=== PATIENT | female | born 1995 | race Caucasian/White ===

== ENCOUNTER 2021-02-09 11:44 | Emergency (ER) | payer BC, SELFPAY ==
--- NOTE | ~2021-02-09 | CT_ITS ---
EXAMINATION: CT abdomen pelvis w con EXAM DATE: 02/09/2021 13:18 INDICATION: RLQ abd pain. TECHNIQUE: Spiral CT of the abdomen and pelvis was performed following intravenous injection of 100 m L Omnipaque 350. Axial, coronal and sagittal images were reviewed. The dose-length product (DLP) fo r this examination was 217.12 mGy-cm. The exposure was tailored according to patient size (auto mA e xposure control), and iterative reconstruction (ASIR) was used as additional dose reduction technique . Comparison is made to prior examination from 12/22/2017. FINDINGS: The liver, spleen, adrenal glands and pancreas are unremarkable. There are cholecystectomy clips. Portal and splenic veins are patent. Kidneys enhance symmetrically. There is no hydronephr osis. The uterus and ovaries are unremarkable, no adnexal mass. The bladder is unremarkable. Ther e is no retroperitoneal or pelvic lymphadenopathy. The retrocecal appendix is normal. The stomach and small bowel are unremarkable. There is moderate amount of colonic stool. No free intraperitoneal gas. The heart is normal in size. There are no pericardial or pleural effusions. The lung bases are unremarkable. There are no osteoblastic or ost eolytic lesions identified. IMPRESSION: 1. No acute intra-abdominal findings. Reviewed, dictated and finalized at location A.
--- NOTE | ~2021-02-09 | US_ITS ---
EXAMINATION: US pelvic complete w TV DATE: 02/09/2021 15:28 INDICATION: Right lower quadrant abdominal pain. TECHNIQUE: Multiple transabdominal and transvaginal sonographic images of the pelvis were obtained. COMPARISON: CT abdomen and pelvis 02/09/2021 FINDINGS: TRANSABDOMINAL ULTRASOUND: The uterus measures 9.6 x 6.3 x 4.5 cm. There is no free fluid in the pelvis. TRANSVAGINAL ULTRASOUND: The endometrial complex measures 6 mm in thickness. The right ovary measures 3.2 x 2.8 x 3.3 cm. The left ovary measures 1.9 x 1.9 x 3.1 cm. There is normal vascular flow in the ovaries. IMPRESSION: 1. Normal pelvis. Reviewed, dictated and finalized at location A. IMPRESSION: 1. Normal pelvis.
[2021-02-09 11:53] VITALS: BP 125/78; PULSE 84; RESP 18; TEMP 35.8; O2SAT 100
--- NOTE | 2021-02-09 12:01 | ED.ABDPAIN ---
HPI - Abdominal Pain General Chief Complaint: Abdominal Pain Stated Complaint: Lower Back Pain Time Seen by Provider: 02/09/21 11:51 Source: RN notes reviewed History of Present Illness HPI narrative: Patient presents emergency room from home for abdominal pain. Patient states symptoms began yesterday. Pain is located in the right lower quadrant around to the right flank described as sharp and stabbing. Denies any fevers or chills chest pain shortness of breath nausea vomiting diarrhea or any other symptoms. States she took no medication for the pain today. States nothing makes the pain better or worse Related Data Allergies Allergy/AdvReac Type Severity Reaction Status Date / Time morphine Allergy Unknown Unknown Verified 02/09/21 11:55 Pistachio Allergy Unknown HIVES Uncoded 07/28/20 11:09 Review of Systems Review of Systems: Narrative: Gen.: Denies fevers or chills ENT: Denies congestion Respiratory: Denies shortness of breath or cough CV: Denies chest pain or palpitations GI: See HPI denies burning, urgency, frequency or hematuria Musculoskeletal: Denies back pain or muscle pain Neuro: Denies numbness, tingling, weakness or focal weakness Skin: Denies rash Except as documented, all other systems reviewed and negative PMFSH Past Medical History Medical History Narcolepsy Surgical History Surgical History (Updated 05/03/20 @ 08:48 by Xenia Aguiar CMA) Delivery by section History of adenoidectomy History of surgical removal of ganglion cyst History of tubal ligation Hx of tonsillectomy Family History Family History (Updated 04/29/18 @ 08:51 by DOCTOR UNKNOWN) Mother Patient's mother is in good health Father Patient's father is in good health Social History Social History Smoking status: Current every day smoker Smoking end date: 11/11/17 Alcohol intake: current Exam Narrative: Exam Narrative: APPEARANCE: No acute distress, nontoxic, resting in bed HEENT: Normocephalic, atraumatic, OMM RESPIRATORY: No respiratory distress, clear to auscultation bilaterally with no rhonchi wheezing or rales CARDIOVASCULAR: RRR s murmur ABDOMINAL: Soft nondistended tender palpation in right lower quadrant no tenderness right upper quadrant, left upper quadrant left lower quadrant no rebound or guarding MUSCULOSKELETAl: Moves all extremities. No clubbing, cyanosis or edema. NEURO: Awake and alert. Following commands, speech normal, no focal deficits SKIN:: Warm, dry. Normal Color PSYCHIATRIC: Normal affect/mood Course Course Emergency Course: On further discussion with patient she states that she has approximately 2 or 3 episodes of the similar pain per year for the past several years she states has had no formal work-up. Discussed follow-up with GI for further work-up as pain does appear to be more chronic Patient states that they are feeling much better at this time. States abdominal pain has improved. Repeat abdominal exam shows the patient's abdomen to be soft with no surgical abdomen present discussed with patient results of workup and diagnosis. Discussed need for follow-up with primary care physician, reasons to return to the emergency department in proper use of medication. Patient understands and agrees to current treatment plan Vital Signs Vital signs: Vital Signs Temperature 96.4 F L 02/09/21 11:53 Pulse Rate 84 02/09/21 11:53 Respiratory Rate 18 02/09/21 11:53 Blood Pressure 125/78 02/09/21 11:53 Pulse Oximetry 100 02/09/21 11:53 Temperature 96.4 F L 02/09/21 11:53 Pulse Rate 84 02/09/21 11:53 Respiratory Rate 18 02/09/21 11:53 Blood Pressure 125/78 02/09/21 11:53 Pulse Oximetry 100 02/09/21 11:53 MDM - Abdominal Pain MDM Narrative Medical decision making narrative: Patient's abdomen is soft without significant pain or signs of surgi
[2021-02-09 12:05] LABS: Basophils Percent Auto 0.3 % (0.2-1.2); Eosinophils Percent Auto 0.3 % (0-4.4); Hematocrit 49.3 % (37.0-47.0); Hemoglobin 16.4 g/dL (12.0-15.0); Immature Granulocyte Absolute 0.03 K/mm3 (0.00-0.031); Immature Granulocyte Percent A 0.3 % (0-0.5); Lymphocytes Absolute Auto 2.15 K/mm3 (0.9-3.2); Lymphocytes Percent Auto 19.7 % (18.3-44.2); Mean Corpuscular HGB Conc 33.3 g/dl (32-36); Mean Corpuscular Hemoglobin 31.6 pg (26-34); Mean Platelet Volume 9.6 fl (7.4-10.4); Monocytes Absolute Auto 0.7 K/mm3 (0.1-0.6); Monocytes Percent Auto 6.1 % (2.6-8.5); Neutrophils Percent Auto 73.3 % (45.5-73.1); Platelet Count Result 265 k/mm3 (150-375); Red Blood Count 5.19 M/mm3 (4.2-5.4); Red Cell Distribution Width 12.7 % (11.5-14.5); White Blood Count 10.9 K/mm3 (4.5-10.0)
[2021-02-09 12:19] LABS: Alanine Aminotransferase 14 U/L (4-35); Alkaline Phosphatase 57 U/L (38-126); Anion Gap 9 mmol/L (8-16); Aspartate Amino Transferase 22 U/L (14-36); Bilirubin,Total 0.6 mg/dL (0.2-1.3); Blood Urea Nitrogen 20 mg/dL (7-17); Calcium 9.4 mg/dL (8.4-10.2); Carbon Dioxide 28 mmol/L (22-30); Chloride 105 mmol/L (98-107); Estimated CRCL calculation 75 ml/min; Estimated Glomerular Filt Rate > 60; Glucose 92 mg/dL (65-105); Lipase 87 U/L (23-300); Sodium 142 mmol/L (137-145)
[2021-02-09 13:54] LABS: Add Urine Microscopic? YES; Appearance Urine Clear (Clear); Bilirubin Urine Negative (Negative); Blood Urine Negative (Negative); Color Urine Straw (Yellow); Glucose Urine UA Negative (Negative); Ketones Urine 1+ mg/dL (Negative); Leukocyte Esterase Ur Negative LEU/UL (Negative); Nitrate Urine Negative (Negative); Protein Urine Negative (Negative); RBC Urine 0-2 /hpf (0-2); Squamous Epithelial Cell Urine Few /hpf (Few); Urobilinogen Urine Negative mg/dL (<2.0); WBC Urine 0-3 /hpf
[2021-02-09] MEDS: KETOROLAC 30 MG/ML VIAL (*BKC) IV PUSH (14:00)
[2021-02-09] MEDS: SODIUM CHLORIDE 0.9% IV 1,000 ML 999 ML IV CONT (14:00)
[2021-02-09 14:01] LABS: Specific Grav Ur > 1.060 (1.001-1.035)
== END 2021-02-09 16:16 | disposition home or self-care (01) ==
PROVIDERS: Emergency Provider Emergency Medicine; PCP Internal Medicine
DX: R10.31 Right lower quadrant pain (principal); G47.419 Narcolepsy without cataplexy; Z87.891 Personal history of nicotine dependence
CPT/HCPCS: 36415; 74177; 76830; 76856; 80053; 81001; 81025; 83690; 85025; 96361; 96374; 96375; 99284; J0131; J1885; J7030; Q9967

== ENCOUNTER 2021-11-25 15:50 | Emergency (ER) | payer OTHER, SELFPAY ==
[2021-11-25 16:09] VITALS: BP 114/73; PULSE 105; RESP 16; TEMP 36.6; O2SAT 98
--- NOTE | 2021-11-25 18:47 | PC.NURSE ---
pt refusing to get into gown at this time.
[2021-11-25 18:59] LABS: Basophils Percent Auto 0.6 % (0.2-1.2); Eosinophils Absolute Auto 0.1 K/mm3 (0-0.3); Eosinophils Percent Auto 0.8 % (0-4.4); Hematocrit 42.6 % (37.0-47.0); Immature Granulocyte Absolute 0.02 K/mm3 (0.00-0.031); Immature Granulocyte Percent A 0.3 % (0-0.5); Mean Corpuscular HGB Conc 32.9 g/dl (32-36); Mean Corpuscular Hemoglobin 31.2 pg (26-34); Mean Corpuscular Volume 94.9 fl (80-100); Mean Platelet Volume 10.1 fl (7.4-10.4); Monocytes Absolute Auto 0.6 K/mm3 (0.1-0.6); Monocytes Percent Auto 8.6 % (2.6-8.5); Neutrophils Absolute Auto 4.7 K/mm3 (1.3-6.7); Neutrophils Percent Auto 65.7 % (45.5-73.1); Platelet Count Result 290 k/mm3 (150-375); Red Blood Count 4.49 M/mm3 (4.2-5.4); Red Cell Distribution Width 13.2 % (11.5-14.5); White Blood Count 7.1 K/mm3 (4.5-10.0)
[2021-11-25 19:17] VITALS: BP 125/67; PULSE 69; RESP 20; O2SAT 100
--- NOTE | 2021-11-25 19:18 | PC.NURSE ---
pt refuses to change into gown
[2021-11-25 19:27] LABS: Alanine Aminotransferase 13 U/L (4-35); Albumin Level 4.6 g/dL (3.5-5.1); Alkaline Phosphatase 51 U/L (38-126); Anion Gap 9 mmol/L (8-16); Aspartate Amino Transferase 22 U/L (14-36); Bilirubin,Total 1.1 mg/dL (0.2-1.3); Blood Urea Nitrogen 8 mg/dL (7-17); Calcium 9.3 mg/dL (8.4-10.2); Carbon Dioxide 25 mmol/L (22-30); Chloride 104 mmol/L (98-107); Estimated CRCL calculation 97 ml/min; Estimated Glomerular Filt Rate > 60; Glucose 90 mg/dL (65-110); Lipase 50 U/L (23-300); Potassium 3.6 mmol/L (3.4-5.0); Sodium 138 mmol/L (137-145)
--- NOTE | 2021-11-25 19:40 | PC.NURSE ---
Pt reports she has longstanding hx of GI issues, c/o n/v/d x 2 weeks. reports last ate/drank this am. blanket provided. placed on monitor.
[2021-11-25 20:03] VITALS: BP 114/71; PULSE 78; RESP 20; O2SAT 100
[2021-11-25] MEDS: ONDANSETRON INJ 4 MG/2 ML VIAL IV PUSH (20:07)
[2021-11-25] MEDS: SODIUM CHLORIDE 0.9% IV 1,000 ML 999 ML IV CONT (20:07)
[2021-11-25 20:51] VITALS: BP 90/57; PULSE 77; RESP 20; O2SAT 100
--- NOTE | 2021-11-25 21:06 | PC.NURSE ---
Urine collected and sent to lab as ordered. Bedside preg test NEGATIVE.
[2021-11-25 21:16] LABS: Add Urine Microscopic? YES; Appearance Urine Cloudy (Clear); Bilirubin Urine Negative (Negative); Blood Urine Negative (Negative); Color Urine Yellow (Yellow); Glucose Urine UA Negative (Negative); Ketones Urine 1+ mg/dL (Negative); Leukocyte Esterase Ur Negative LEU/UL (Negative); Mucus Urine Heavy /lpf; Nitrate Urine Negative (Negative); Protein Urine 1+ mg/dL (Negative); Specific Grav Ur 1.019 (1.001-1.035); Squamous Epithelial Cell Urine Many /hpf (Few)
--- NOTE | 2021-11-25 21:17 | ED.GENADULT ---
HPI - General Adult General Chief complaint: Nausea/Vomiting/Diarrhea Stated complaint: nausea Time Seen by Provider: 11/25/21 19:30 History of Present Illness HPI narrative: Patient with 26-year-old female Emergency Department complaining of nausea and vomiting. Patient reports that she was diagnosed with COVID on second reports that she has had continued nausea is feeling as though she is dehydrated. Patient reports not improved by anything and reports that the diarrhea but that subsequently tapered off the patient denies localizing abdominal pain Related Data Allergies Allergy/AdvReac Type Severity Reaction Status Date / Time morphine Allergy Severe Difficulty Verified 11/25/21 19:17 Breathing Pistachio Allergy Unknown HIVES Uncoded 11/25/21 18:45 Review of Systems Review of Systems: A 10 system review of systems was completed on the patient and is negative except for what is stated in the HPI. Nursing and ancillary documentation was reviewed. [facility] Past Medical History Medical History Narcolepsy Surgical History Surgical History Delivery by section History of adenoidectomy History of surgical removal of ganglion cyst History of tubal ligation Hx of tonsillectomy Family History Family History Mother Patient's mother is in good health Father Patient's father is in good health Social History Social History Smoking status: Current every day smoker Smoking end date: 11/11/17 Alcohol intake: current Alcohol use details: rarely Exam Narrative: GENERAL: Well-appearing, well-nourished, and in no acute distress. HEAD: Normocephalic, atraumatic. EYES: PERRLA and EOMI. ENT: Nares clear, no rhinorrhea or epistaxis. Mucous membranes moist. NECK: Supple. CHEST: Clear to auscultation. No respiratory distress. HEART: Regular rate and rhythm. No murmur heard. Normal peripheral pulses. ABDOMEN: Soft, nontender, nondistended, normal active bowel sounds. EXTREMITIES: Normal range of motion. No edema. SKIN: Warm, dry, no rash. NEURO: No focal deficits. Alert and oriented x3. PSYCH: Normal mood and affect. Course Vital Signs Vital signs: Vital Signs Temperature 36.6 C 11/25/21 16:09 Pulse Rate 105 H 11/25/21 16:09 Respiratory Rate 16 11/25/21 16:09 Blood Pressure 114/73 11/25/21 16:09 Pulse Oximetry 98 11/25/21 16:09 Temperature 36.6 C 11/25/21 16:09 Pulse Rate 77 11/25/21 20:51 Respiratory Rate 20 11/25/21 20:51 Blood Pressure 90/57 L 11/25/21 20:51 Pulse Oximetry 100 11/25/21 20:51 Medical Decision Making Vital Signs Vital Signs: Vital Signs Temperature 36.6 C 11/25/21 16:09 Pulse Rate 105 H 11/25/21 16:09 Respiratory Rate 16 11/25/21 16:09 Blood Pressure 114/73 11/25/21 16:09 Pulse Oximetry 98 11/25/21 16:09 Temperature 36.6 C 11/25/21 16:09 Pulse Rate 77 11/25/21 20:51 Respiratory Rate 20 11/25/21 20:51 Blood Pressure 90/57 L 11/25/21 20:51 Pulse Oximetry 100 11/25/21 20:51 Lab Data Result diagrams: 11/25/21 18:54 11/25/21 19:13 Labs: Lab Results 11/25/21 11/25/21 11/25/21 Range/Units 18:54 19:13 21:00 WBC 7.1 (4.5-10.0) K/mm3 RBC 4.49 (4.2-5.4) M/mm3 Hgb 14.0 (12.0-15.0) g/dL Hct 42.6 (37.0-47.0) % MCV 94.9 (80-100) fl MCH 31.2 (26-34) pg MCHC 32.9 (32-36) g/dl RDW 13.2 (11.5-14.5) % Plt Count 290 (150-375) k/mm3 MPV 10.1 (7.4-10.4) fl Immature Gran % (Auto) 0.3 (0-0.5) % Neut % (Auto) 65.7 (45.5-73.1) % Lymph % (Auto) 24.0 (18.3-44.2) % [place] % (Auto) 8.6 H (2.6-8.5) % Eos % (Auto) 0.8 (0-4.4) % Baso % (Auto) 0.6 (0.2-1.2) % Lymph # (Au
[2021-11-25 22:30] VITALS: BP 128/88; PULSE 100; RESP 18; TEMP 36.1; O2SAT 99
== END 2021-11-25 22:46 | disposition home or self-care (01) ==
PROVIDERS: Emergency Medicine; Emergency Provider Emergency Medicine; PCP Internal Medicine
DX: R11.2 Nausea with vomiting, unspecified (principal); Z86.16 Personal history of COVID-19; Z87.891 Personal history of nicotine dependence
CPT/HCPCS: 36415; 80053; 81001; 81025; 83690; 85025; 96361; 96374; 99284; J2405; J7030

== ENCOUNTER 2022-01-10 12:31 | Emergency (ER) | payer OTHER, SELFPAY ==
[2022-01-10 12:38] VITALS: BP 132/62; PULSE 85; RESP 18; TEMP 36.9; O2SAT 99
--- NOTE | 2022-01-10 12:45 | ED.DENTAL ---
HPI - Dental/Oral General Chief complaint: Dental/Oral Stated complaint: tooth pain Time Seen by Provider: 01/10/22 12:40 Source: patient Mode of arrival: ambulatory Limitations: no limitations History of Present Illness HPI Narrative: Kristy Nieves is a 26 yo female with a PMH of asthma who had a fractured left upper molar that occurred originally 4 years ago and has been infected on and off. Right now she has inflammation of the gum and pain in the right upper part of her jaw and has been unable to find a dentist will take her without insurance Related Data Allergies Allergy/AdvReac Type Severity Reaction Status Date / Time morphine Allergy Severe Difficulty Verified 11/25/21 19:17 Breathing Pistachio Allergy Unknown HIVES Uncoded 11/25/21 18:45 Review of Systems Review of Systems: CONSTITUTIONAL: Denies fever, chills, sweats. EYES: Denies visual changes, redness, discharge. ENT: Denies rhinorrhea, congestion, sore throat, otalgia. CARDIOVASCULAR: Denies chest pain, palpitations, edema. RESPIRATORY: Denies dyspnea, wheezing, cough GASTROINTESTINAL: Denies abdominal pain, nausea, vomiting, diarrhea. GENITOURINARY: Denies dysuria, hematuria, abnormal discharge SKIN: Denies rash or itching. NEUROLOGIC: Denies numbness, or focal weakness. PSYCHIATRIC: Denies anxiety or depression. Left upper molar pain PMFSH Past Medical History Medical History Narcolepsy Surgical History Surgical History Delivery by section History of adenoidectomy History of surgical removal of ganglion cyst History of tubal ligation Hx of tonsillectomy Family History Family History Mother Patient's mother is in good health Father Patient's father is in good health Social History Social History Smoking status: Current every day smoker Smoking end date: 11/11/17 Alcohol intake: current Alcohol use details: rarely Comments At time of signature, I agree with nursing past medical, surgical, social and family history. There is no relevant family history pertinent to the presenting complaint. Exam Narrative: GENERAL: This is a well-nourished, well-developed patient, in mild distress. HEAD: normocephalic, atraumatic. EYES: Sclera clear/white. Vision is grossly intact. EARS: External ears normal,. Hearing grossly intact. NOSE: External nose normal without nasal discharge, nares without redness, no rhinorrhea. THROAT: Mucous membranes moist, posterior pharynx mild erythema with left upper molar pain with swelling around gum and tooth is fractured in half NECK: Neck supple, non-tender CARDIOVASCULAR: Regular rate and rhythm without murmurs, gallops, or rubs. RESPIRATORY: Clear to auscultation. Breath sounds equal bilaterally. No wheezes, rales, or rhonchi. GASTROINTESTINAL: Abdomen soft, SKIN: warm, intact with no suspicious lesions or rash, good texture and turgor. NEURO: awake, alert, and oriented to person, place and time. There were no obvious focal neurologic abnormalities. Steady gait EXTREMITIES: Normal range of motion. BACK: Nontender without deformity Course Course Emergency Course: Patient comes with pain in fracture upper left molar Started on Pen-Vee K, Tylenol 3 and viscous lidocaine Level of Care: Express Care Visit Vital Signs Vital signs: Vital Signs Temperature 98.4 F 01/10/22 12:38 Pulse Rate 85 01/10/22 12:38 Respiratory Rate 18 01/10/22 12:38 Blood Pressure 132/62 01/10/22 12:38 Pulse Oximetry 99 01/10/22 12:38 Temperature 98.4 F 01/10/22 12:38 Pulse Rate 85 01/10/22 12:38 Respiratory Rate 18 01/10/22 12:38 Blood Pressure 132/62 01/10/22 12:38 Pulse Oximetry 99 01/10/22 12:38 MDM - Dental/Oral Differential Diagnosis Differential diag
== END 2022-01-10 13:03 | disposition home or self-care (01) ==
PROVIDERS: Emergency Provider Nurse Practitioner; PCP Nurse Practitioner Family
DX: S02.5XXA Fracture of tooth (traumatic), initial encounter for closed fracture (principal); X58.XXXA Exposure to other specified factors, initial encounter
CPT/HCPCS: 99213; G0463

== ENCOUNTER 2022-04-11 10:21 | Emergency (ER) | payer OTHER, SELFPAY ==
--- NOTE | ~2022-04-11 | XR_ITS ---
XR wrist RT min 3V 04/11/2022 10:50 INDICATION: Right wrist pain PROCEDURE: 4 views right wrist COMPARISON: No prior studies for comparison. FINDINGS: Fracture, dislocation or subluxation is not identified. The soft tissues appear within norm al limits. No foreign bodies are identified. IMPRESSION: 1: NO ACUTE BONE OR JOINT ABNORMALITY IDENTIFIED. Reviewed, dictated and finalized at location A.
--- NOTE | 2022-04-11 10:30 | ED.UPPEXIN ---
HPI - Extremity Injury (Upper) General Chief Complaint: Extremity Injury, Upper Stated Complaint: right wrist pain Source: patient Mode of arrival: ambulatory Limitations: no limitations History of Present Illness HPI narrative: 26 y/o female presented for c/o right wrist pain, gradual onset yesterday. 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 Pain to ulnar/palmar aspect, constant, worse with twisting movement. Denies numbness, tingling or weakness of hand. Rates pain 6 out of 10. She has not taken anything for pain, or applied ice/heat Related Data Allergies Allergy/AdvReac Type Severity Reaction Status Date / Time morphine Allergy Severe Difficulty Verified 04/11/22 10:39 Breathing Pistachio Allergy Intermediate HIVES Uncoded 04/11/22 10:39 Review of Systems Review of Systems: CONSTITUTIONAL: Denies body aches, fever, chills CARDIOVASCULAR: Denies chest pain, palpitations, or edema. RESPIRATORY: Denies cough or dyspnea. SKIN: Denies rash, itching, or wounds. MUSCULOSKELETAL: Reports joint pain. NEUROLOGIC: Denies numbness, tingling, or weakness. All systems reviewed & are unremarkable except as noted in HPI and below PMFSH Past Medical History Medical History Narcolepsy Surgical History Surgical History Delivery by section History of adenoidectomy History of surgical removal of ganglion cyst History of tubal ligation Hx of tonsillectomy Family History Family History Mother Patient's mother is in good health Father Patient's father is in good health Social History Social History Smoking status: Former smoker Tobacco type: cigarettes Smoking end date: 11/11/17 Alcohol intake: current Alcohol use details: rarely Substance use: current Substance use type: marijuana Gender identity (if verbalized by the patient): Female Comments At time of signature, I have reviewed and agree with nursing past medical, surgical, social and family history unless otherwise noted. Please see nursing chart for further information. There is no relevant family history pertinent to the presenting complaint Exam Narrative: GENERAL: Well-appearing HEAD: Normocephalic, atraumatic. EYES: conjunctivae clear NECK: Supple. CHEST: Speaks in full sentences. No respiratory distress. HEART: Regular rate and rhythm. Normal and equal peripheral pulses. EXTREMITIES: Right wrist ulnar/palmar surface TTP, Right hand has normal strength and sensation, normal range of motion but endorses pain with twisting movement. No edema or ecchymosis. No open wounds, skin tenting,or obvious deformity; alignment normal, pulse palpable and equal bilaterally, skin warm, dry, pink. Capillary refill less than 3 seconds. SKIN: Warm, dry, no rash. NEURO: Alert and oriented x3. Course Course Emergency Course: Patient is aware of diagnosis, understands and agrees to treatment plan. Anticipatory guidance given. Patient agrees to follow-up as directed and is aware of reasons to seek care at the emergency department. Portions of this record may have been created with voice recognition software Level of Care: Express Care Visit Vital Signs Vital signs: Vital Signs Temperature 97.2 F L 04/11/22 10:32 Pulse Rate 73 04/11/22 10:32 Respiratory Rate 12 04/11/22 10:32 Blood Pressure 110/62 04/11/22 10:32 Pulse Oximetry 100 04/11/22 10:32 Oxygen Delivery Room Air 04/11/22 10:32 Temperature 97.2 F L 04/11/22 10:32 Pulse Rate 73 04/11/22 10:32 Respiratory Rate 12 04/11/22 10:32 Blood Pressure 110/62 04/11/22 10:32 Pulse Oximetry 100 04/11/22 10:32 Oxygen Delivery Room Air 04/11/22 10:32 Reviewed MDM - Extremity In
[2022-04-11 10:32] VITALS: BP 110/62; PULSE 73; RESP 12; TEMP 36.2; O2SAT 100
== END 2022-04-11 11:22 | disposition home or self-care (01) ==
PROVIDERS: Emergency Provider Nurse Practitioner Family; PCP Nurse Practitioner Family
DX: S63.501A Unspecified sprain of right wrist, initial encounter (principal); S66.911A Strain of unspecified muscle, fascia and tendon at wrist and hand level, right hand, initial encounter; X58.XXXA Exposure to other specified factors, initial encounter; G47.419 Narcolepsy without cataplexy; Z87.891 Personal history of nicotine dependence
CPT/HCPCS: 73110; 99213; G0463

== ENCOUNTER 2022-05-05 15:49 | Emergency (ER) | payer OTHER, SELFPAY ==
[2022-05-05 15:59] VITALS: BP 117/75; PULSE 93; RESP 16; TEMP 37.1; O2SAT 100
--- NOTE | 2022-05-05 16:08 | ED.DENTAL ---
HPI - Dental/Oral General Chief complaint: Dental/Oral Stated complaint: Dental Pain Time Seen by Provider: 05/05/22 16:08 Source: patient Mode of arrival: ambulatory Limitations: no limitations History of Present Illness HPI Narrative: 26 yo F presents with L upper dental pain. Reports tooth has been broken for awhile . Has been on abx several times for it to treat infection. Cannot see dentist due to insurance reasons. All systems reviewed and negative except as noted above. Related Data Allergies Allergy/AdvReac Type Severity Reaction Status Date / Time morphine Allergy Severe Difficulty Verified 04/11/22 10:39 Breathing Pistachio Allergy Intermediate HIVES Uncoded 04/11/22 10:39 Review of Systems Review of Systems: CONSTITUTIONAL: Denies fever, chills, or sweats. EYES: Denies visual changes, redness, or discharge. ENT: Denies rhinorrhea, congestion, sore throat, or otalgia. Reports left upper dental pain. CARDIOVASCULAR: Denies chest pain, palpitations, or edema. RESPIRATORY: Denies cough or dyspnea. GASTROINTESTINAL: Denies abdominal pain, nausea, vomiting, or diarrhea. GENITOURINARY: Denies dysuria or hematuria. SKIN: Denies rash or itching. MUSCULOSKELETAL: Denies back pain, joint pain, or myalgia. NEUROLOGIC: Denies headache, numbness, or weakness. PSYCHIATRIC: Denies anxiety or depression. All other systems reviewed are negative, except as documented in HPI. [facility] [place] Past Medical History Medical History Narcolepsy Surgical History Surgical History Delivery by section History of adenoidectomy History of surgical removal of ganglion cyst History of tubal ligation Hx of tonsillectomy Family History Family History Mother Patient's mother is in good health Father Patient's father is in good health Social History Social History Smoking status: Former smoker Tobacco type: cigarettes Smoking end date: 11/11/17 Alcohol intake: current Alcohol use details: rarely Substance use: current Substance use type: marijuana Gender identity (if verbalized by the patient): Female Comments At time of signature, agree with nursing past medical, surgical, social and family history. There is no relevant family history pertinent to the presenting complaint. Exam Narrative: GENERAL: This is a well-nourished, well-developed patient, in no apparent distress. HEAD: normocephalic, atraumatic. EYES: PERRL. Sclera clear/white. Vision is grossly intact. EARS: External ears normal NOSE: External nose normal MOUTH: Broken wisdom tooth at base of gumline. Decayed with surrounding erythema and swelling to gums. NECK: Neck supple, non-tender without lymphadenopathy, masses or thyromegaly. CARDIOVASCULAR: Regular rate and rhythm without murmurs, gallops, or rubs. RESPIRATORY: Clear to auscultation. Breath sounds equal bilaterally. No wheezes, rales, or rhonchi. SKIN: warm, Dry, intact with no suspicious lesions or rash, good texture and turgor. NEURO: awake, alert, and oriented to person, place and time. There were no obvious focal neurologic abnormalities. EXTREMITIES: No joint tenderness, effusion, or edema noted. Course Course Level of Care: Express Care Visit Vital Signs Vital signs: Vital Signs Temperature 37.1 C 05/05/22 15:59 Pulse Rate 93 05/05/22 15:59 Respiratory Rate 16 05/05/22 15:59 Blood Pressure 117/75 05/05/22 15:59 Pulse Oximetry 100 05/05/22 15:59 Oxygen Delivery Room Air 05/05/22 15:59 Temperature 37.1 C 05/05/22 15:59 Pulse Rate 93 05/05/22 15:59 Respiratory Rate 16 05/05/22 15:59 Blood Pressure 117/75 05/05/22 15:59 Pulse Oximetry 100 05/05/22 15:59 Oxygen Delivery Room Air 05/05/22 15:59 Reviewed
== END 2022-05-05 16:31 | disposition home or self-care (01) ==
PROVIDERS: Emergency Provider Nurse Practitioner Family; PCP Nurse Practitioner Family
DX: K04.7 Periapical abscess without sinus (principal); Z87.891 Personal history of nicotine dependence; G47.419 Narcolepsy without cataplexy
CPT/HCPCS: 99213; G0463

== ENCOUNTER 2022-07-09 00:56 | Day surgery (SDC) | payer OTHER, SELFPAY ==
[2022-06-26 13:05] VITALS: BMI 21.3
--- NOTE | 2022-07-06 17:39 | PM.HPGS ---
History of Present Illness History of Present Illness Consent: Risks, benefits, and alternatives have been discussed and questions answered. Patient agrees to proceed with procedure. Chief complaint: nausea, vomiting, weightloss Narrative: Kristy Nieves is a 27 year old female who for about as long as she can remember she has had digestive problems.? She gets abdominal pain very frequently after meal.? The pain then radiates throughout her entire abdomen although it seems to be the worst in the right lower quadrant.? Eventually it will subside, particularly if she has diarrhea or vomits.? Even as a child, she had problems with vomiting.? Her television production assistant would prescribe Zofran but no tests were done to investigate it.? Over the years she feels that she is becoming immune to Zofran.? Often she will wake up vomiting bringing up only bile.? She has good and bad days, in other words there may be a day or 2 without symptoms and everything returns.? She has use cannabis regularly for the past 2 years since it has become legal but was not using it previously. She is not in favor of giving it up and I suggested he could be a factor in her symptoms because she states that she needs it to help settle her stomach. Crohn's,? IBD panel, celiac panel and CRP were completed that were normal.? She was placed on amitriptyline 10 mg HS at the end of February for IBS.? She states since she has been on amitriptyline she is no longer having postprandial diarrhea or abdominal pain and is now having formed bowel movements. Denies any melena or hematochezia.? She continues to have daily nausea with intermittent vomiting yellow acid bile with no regurgitation of undigested food.? Review of Systems Review of Systems: All systems reviewed & are unremarkable except as noted in HPI and below PMFSH Past Medical History Medical History Abdominal pain Diarrhea History of palpitations Narcolepsy Nausea and vomiting Surgical History Surgical History Delivery by section History of adenoidectomy History of surgical removal of ganglion cyst History of tubal ligation Hx of tonsillectomy Family History Family History Mother Patient's mother is in good health Father Patient's father is in good health Social History Social History Smoking status: Former smoker Tobacco type: cigarettes Smoking end date: 11/11/17 Alcohol intake: current Alcohol use details: rarely Substance use: current Substance use type: marijuana Last use: 06/26/22 Living arrangements: with family Gender identity (if verbalized by the patient): Female Spiritual care concerns: No Meds Home Medications and Allergies Home Medications Medication Instructions Recorded Confirmed Type omeprazole 40 mg capsule,delayed 40 mg PO DAILY #30 caps 06/07/22 07/09/22 Rx release prochlorperazine maleate 5 mg 5 mg PO Q8H PRN nausea and 06/07/22 07/09/22 Rx tablet (Compazine) vomiting #30 tabs amitriptyline 10 mg tablet See Rx Instructions .Route 06/21/22 07/09/22 Rx .COMPLEX #30 tabs Allergies Allergy/AdvReac Type Severity Reaction Status Date / Time morphine Allergy Severe Difficulty Verified 07/09/22 10:02 Breathing Pistachio Allergy Intermediate HIVES Uncoded 07/09/22 10:02 Exam Const: General: alert Orientation/consciousness: patient oriented x3 Resp: Auscultation: clear to auscultation bilaterally Cardio: Rhythm: regular rhythm GI: GI Palp: Yes Soft to palpation and No Tenderness to palpation present (GI) Neuro: General: patient oriented x3 Assessment and Plan Assessment and plan (1) Abdominal pain: Code(s): R10.9 - Unspecified abdominal pain Status: Acute Assessment and Plan: EGD with possible biopsy
[2022-07-09 10:05] VITALS: BP 115/75; PULSE 73; RESP 16; TEMP 36.6; O2SAT 100
--- NOTE | 2022-07-09 10:08 | WPDANESEPPF ---
Anes - Initial Pre Proc Eval Procedure: Operation Date: 07/09/22 11:00 Proposed Procedures p Esophagogastroduodenoscopy - Avi Jennings MD Date/Time: 07/09/22 10:08 Surgeon: Avi Jennings MD Pre Op Diagnosis: nausea, vomiting, weightloss Patient Data Age: 27 Gender: F Height: 1.65 m Weight: 58.1 kg Allergies Allergy/AdvReac Type Severity Reaction Status Date / Time morphine Allergy Severe Difficulty Verified 07/09/22 10:02 Breathing Pistachio Allergy Intermediate HIVES Uncoded 07/09/22 10:02 Home Medications Medication Instructions Recorded Confirmed Type omeprazole 40 mg capsule,delayed 40 mg PO DAILY #30 caps 06/07/22 06/26/22 Rx release prochlorperazine maleate 5 mg 5 mg PO Q8H PRN nausea and 06/07/22 06/26/22 Rx tablet (Compazine) vomiting #30 tabs amitriptyline 10 mg tablet See Rx Instructions .Route 06/21/22 06/26/22 Rx .COMPLEX #30 tabs Patient hx anesthesia problems: none Family hx anesthesia problems: none Results Review: All pre-operative results and documents have been reviewed as part of the pre-operative evaluation. [facility] Past Medical History Medical History (Updated 07/09/22 @ 10:11 by Doni Foley MD) Abdominal pain Diarrhea History of palpitations Narcolepsy Nausea and vomiting Surgical History Surgical History Delivery by section History of adenoidectomy History of surgical removal of ganglion cyst History of tubal ligation Hx of tonsillectomy Family History Family History Mother Patient's mother is in good health Father Patient's father is in good health Social History Social History Smoking status: Former smoker Tobacco type: cigarettes Smoking end date: 11/11/17 Alcohol intake: current Alcohol use details: rarely Substance use: current Substance use type: marijuana Last use: 06/26/22 Living arrangements: with family Gender identity (if verbalized by the patient): Female Spiritual care concerns: No Anes - Eval Final PreProcedure Day of Procedure 07/09/22 10:08 Patient weight: normal Heart: regular rate and rhythm Lungs: clear to auscultation and normal air movement Airway: Mallampati scale class II Neurological: alert and oriented Last oral intake: >/= 8 hours ASA classification: II Emergent: no Anesthetic plan: proceed Anesthesia type and monitoring: general GIVS Results Review: All pre-operative results and documents have been reviewed as part of the pre-operative evaluation. Informed Consent: The patient's anesthetic plan and its attendant risks and benefits were discussed with the patient/family/POA. Questions were solicited and answers provided to the satisfaction of the patient/family/POA.
[2022-07-09] MEDS: LACTATED RINGERS 1,000 ML 150 ML IV CONT (10:13)
[2022-07-09 10:54] VITALS: BP 93/53; PULSE 62; RESP 16; O2SAT 100
[2022-07-09 11:04] VITALS: BP 98/78; PULSE 62; RESP 16; O2SAT 100
[2022-07-09 11:14] VITALS: BP 113/80; PULSE 60; RESP 16; O2SAT 100
[2022-07-09 11:24] VITALS: BP 111/74; PULSE 56; RESP 20; O2SAT 100
[2022-07-09 11:34] VITALS: BP 105/67; PULSE 56; RESP 14; O2SAT 100
--- NOTE | 2022-07-09 11:59 | SUR.PHASEII ---
Pt asking for additional nausea medication to take at home states she has Zofran and Compazine at home. Dr. Jennings notified no new orders received. advises pt to stop Cannabis.
== END 2022-07-09 11:56 | disposition home or self-care (01) ==
PROVIDERS: PCP Nurse Practitioner Family; Visit Provider Internal Medicine Gastroenterology
PROC: 0DJ08ZZ Inspection of Upper Intestinal Tract, Via Natural or Artificial Opening Endoscopic (ICD-10-PCS; CPT 43235; principal; 2022-07-09 11:00)
DX: R11.2 Nausea with vomiting, unspecified (principal); K29.70 Gastritis, unspecified, without bleeding; R19.7 Diarrhea, unspecified; R00.2 Palpitations; G47.419 Narcolepsy without cataplexy; Z87.891 Personal history of nicotine dependence; F12.90 Cannabis use, unspecified, uncomplicated; R10.31 Right lower quadrant pain; R10.9 Unspecified abdominal pain
CPT/HCPCS: 43239; 87081; 88305; J2704; J7120

== ENCOUNTER 2023-01-15 09:24 | Emergency (ER) | payer OTHER, SELFPAY ==
[2023-01-15 09:43] VITALS: BP 115/72; PULSE 82; RESP 16; TEMP 36.3; O2SAT 99
--- NOTE | 2023-01-15 09:48 | ED.FEMALEGU ---
HPI - Female Genitourinary General Chief complaint: Urogenital-Female Stated complaint: uti Time Seen by Provider: 01/15/23 09:42 Source: patient Mode of arrival: ambulatory Limitations: no limitations History of Present Illness HPI Narrative: Kristy is a 27-year-old female patient presenting to the clinic today with complaints urinary urgency and low urine output with bladder discomfort. Symptoms have been going on for 2-3 days. Patient has been taking a [employer] [id number] urinary relief that has azo in it. She denies any fever, chills, or back pain. Related Data Allergies Allergy/AdvReac Type Severity Reaction Status Date / Time morphine Allergy Severe Difficulty Verified 01/15/23 09:42 Breathing Pistachio Allergy Intermediate HIVES Uncoded 01/15/23 09:42 PMFSH Past Medical History Medical History Abdominal pain Diarrhea History of palpitations Narcolepsy Nausea and vomiting Surgical History Surgical History Delivery by section History of adenoidectomy History of surgical removal of ganglion cyst History of tubal ligation Hx of tonsillectomy Family History Family History Mother Patient's mother is in good health Father Patient's father is in good health Social History Social History Smoking status: Former smoker Tobacco type: cigarettes Smoking end date: 11/11/17 Alcohol intake: current Alcohol use details: rarely Substance use: current Substance use type: marijuana Last use: 06/26/22 Living arrangements: with family Occupation/Education: occupation Gender identity (if verbalized by the patient): Female Spiritual care concerns: No Comments At the time of my signature, I reviewed and agree with the nursing past medical, surgical, social, and family history. There is no relevant family history pertinent to the patient complaint. Exam Narrative: General: Well-developed, well nourished, in no apparent distress. Head: Normocephalic, atraumatic. Cardio: Regular rate and rhythm, s1 and s2 normal, no murmur appreciated. Resp: Clear to auscultation bilaterally, no rhonchi, rales, wheezing or rubs. Abdomen: Soft, pliable, bowel sounds present in all quadrants, mild tender to palpation over the suprapubic bladder, no organomegly, no CVAT tenderness. Course Course Emergency Course: Portions of this record may have been created with voice recognition software. Level of Care: Express Care Visit Vital Signs Vital signs: Vital Signs Temperature 36.3 C L 01/15/23 09:43 Pulse Rate 82 01/15/23 09:43 Respiratory Rate 16 01/15/23 09:43 Blood Pressure 115/72 01/15/23 09:43 Pulse Oximetry 99 01/15/23 09:43 Oxygen Delivery Room Air 01/15/23 09:43 Temperature 36.3 C L 01/15/23 09:43 Pulse Rate 82 01/15/23 09:43 Respiratory Rate 16 01/15/23 09:43 Blood Pressure 115/72 01/15/23 09:43 Pulse Oximetry 99 01/15/23 09:43 Oxygen Delivery Room Air 01/15/23 09:43 Vital signs reviewed MDM - Female Genitourinary MDM Narrative Medical decision making narrative: At the time of visit patient is resting comfortably on the exam table. Urinalysis was obtained and was skewed due to azo results. Will send for culture. Will give patient 3 day course of Bactrim DS. Supportive measures were discussed with the patient she voiced understanding discharge instructions agrees to treatment plan. Differential Diagnosis Differential diagnosis: Likely urinary tract infection and cystitis Discharge Plan Discharge Clinical Impression: Urinary tract infection Patient Disposition: Home, Self-Care Condition: Stable Instructions: Antibiotic Form, Urinary Tract Infection in Women (ED) Additional I
== END 2023-01-15 10:00 | disposition home or self-care (01) ==
PROVIDERS: Emergency Provider Nurse Practitioner Family; PCP Nurse Practitioner Family
DX: N39.0 Urinary tract infection, site not specified (principal); Z87.891 Personal history of nicotine dependence
CPT/HCPCS: 87086; 99213; G0463

== ENCOUNTER 2023-04-21 02:04 | Emergency (ER) | payer OTHER, SELFPAY ==
[2023-04-21 02:09] VITALS: BP 134/76; PULSE 98; RESP 16; TEMP 36.7; O2SAT 100
--- NOTE | 2023-04-21 02:44 | ED.GENADULT ---
HPI - General Adult General Chief complaint: Skin/Abscess/Foreign Body Stated complaint: tick, red/swelling where it was removed Time Seen by Provider: 04/21/23 02:28 History of Present Illness HPI narrative: Patient 27-year-old female who presents the emergency department with chief complaint of tick bite to the right hip patient reports that today she did not realize that she picked up a tick and noticed that there was a tick on her right pelvis area this evening the patient reports that it got removed after she took her shower and reports that there is a little red dot there the patient states she is concerned that she may have been exposed with tickborne illness Related Data Allergies Allergy/AdvReac Type Severity Reaction Status Date / Time morphine Allergy Severe Difficulty Verified 04/21/23 02:05 Breathing Pistachio Allergy Intermediate HIVES Uncoded 04/21/23 02:05 Review of Systems Review of Systems: A 10 system review of systems was completed on the patient and is negative except for what is stated in the HPI. Nursing and ancillary documentation was reviewed. PMFSH Past Medical History Medical History Abdominal pain Diarrhea History of palpitations Narcolepsy Nausea and vomiting Surgical History Surgical History Delivery by section History of adenoidectomy History of surgical removal of ganglion cyst History of tubal ligation Hx of tonsillectomy Family History Family History Mother Patient's mother is in good health Father Patient's father is in good health Social History Social History Smoking status: Former smoker Tobacco type: cigarettes Smoking end date: 11/11/17 Alcohol intake: current Alcohol use details: rarely Substance use: current Substance use type: marijuana Last use: 06/26/22 Living arrangements: with family Occupation/Education: occupation Gender identity (if verbalized by the patient): Female Spiritual care concerns: No Exam Narrative: GENERAL: Well-appearing, well-nourished, and in no acute distress. HEAD: Normocephalic, atraumatic. EYES: PERRLA and EOMI. ENT: Nares clear, no rhinorrhea or epistaxis. Mucous membranes moist. NECK: Supple. CHEST: Clear to auscultation. No respiratory distress. HEART: Regular rate and rhythm. No murmur heard. Normal peripheral pulses. ABDOMEN: Soft, nontender, nondistended, normal active bowel sounds. EXTREMITIES: Normal range of motion. No edema. SKIN: Warm, dry, small about 1 cm diameter spot of erythema in the right iliac crest area. NEURO: No focal deficits. Alert and oriented x3. PSYCH: Normal mood and affect. Course Vital Signs Vital signs: Vital Signs Temperature 36.7 C 04/21/23 02:09 Pulse Rate 98 04/21/23 02:09 Respiratory Rate 16 04/21/23 02:09 Blood Pressure 134/76 04/21/23 02:09 Pulse Oximetry 100 04/21/23 02:09 Temperature 36.7 C 04/21/23 02:09 Pulse Rate 98 04/21/23 02:09 Respiratory Rate 16 04/21/23 02:09 Blood Pressure 134/76 04/21/23 02:09 Pulse Oximetry 100 04/21/23 02:09 Medical Decision Making MDM Narrative Medical decision making narrative: Differential diagnosis includes tick bite, possible tickborne exposure Patient will be given a prophylactic dose of doxycycline 200 mg and a single dose Vital Signs Vital Signs: Vital Signs Temperature 36.7 C 04/21/23 02:09 Pulse Rate 98 04/21/23 02:09 Respiratory Rate 16 04/21/23 02:09 Blood Pressure 134/76 04/21/23 02:09 Pulse Oximetry 100 04/21/23 02:09 Temperature 36.7 C 04/21/23 02:09 Pulse Rate 98 04/21/23 02:09 Respiratory Rate 16 04/21/23 02:09 Blood Pressure 134/76 04/21/23 02:09 Pulse Oxime
[2023-04-21] MEDS: DOXYCYCLINE HYCLATE 100 MG TABLET 200 MG PO (02:56)
== END 2023-04-21 03:00 | disposition home or self-care (01) ==
PROVIDERS: Emergency Provider Emergency Medicine; PCP Nurse Practitioner Family
DX: S70.261A Insect bite (nonvenomous), right hip, initial encounter (principal); Z87.891 Personal history of nicotine dependence; W57.XXXA Bitten or stung by nonvenomous insect and other nonvenomous arthropods, initial encounter
CPT/HCPCS: 99282; A9270

== ENCOUNTER 2023-10-26 16:24 | Emergency (ER) | payer OTHER, SELFPAY ==
[2023-10-26 16:35] VITALS: BP 131/85; PULSE 101; RESP 20; TEMP 36.8; O2SAT 100
--- NOTE | 2023-10-26 17:04 | ED.URI ---
HPI - URI/Sore Throat General Chief Complaint: Upper Respiratory Infection Stated Complaint: ear pain,head congestion,throat hurts Time Seen by Provider: 10/26/23 17:11 Source: patient and RN notes reviewed Mode of arrival: ambulatory Limitations: no limitations History of Present Illness HPI Narrative: 28-year-old female presents with concern for 3 day history of cough, sore throat, nasal drainage, general malaise. Reports she has been taking pseudoephedrine without relief. She reports her children had similar symptoms. MD elicited complaint: cough and nasal congestion Related Data Home Medications Medication Instructions Recorded Confirmed pantoprazole 40 mg tablet,delayed 40 mg PO DIRECTED 10/26/23 10/26/23 release Allergies Allergy/AdvReac Type Severity Reaction Status Date / Time morphine Allergy Severe Difficulty Verified 10/26/23 16:38 Breathing Pistachio Allergy Intermediate HIVES Uncoded 04/21/23 02:05 Review of Systems Review of Systems: CONSTITUTIONAL: Reports malaise EYES: Denies visual changes, redness, or discharge. ENT: Reports rhinorrhea, congestion, sinus pain, otalgia and sore throat. CARDIOVASCULAR: Denies chest pain, palpitations, or edema. RESPIRATORY: Reports cough. Denies dyspnea. GASTROINTESTINAL: Denies abdominal pain, nausea, vomiting, diarrhea SKIN: Denies rash or itching. MUSCULOSKELETAL: Reports myalgia. NEUROLOGIC: Reports headache. All systems reviewed & are unremarkable except as noted in HPI and below PMFSH Past Medical History Medical History Abdominal pain Diarrhea History of palpitations Narcolepsy Nausea and vomiting Surgical History Surgical History Delivery by section History of adenoidectomy History of surgical removal of ganglion cyst History of tubal ligation Hx of tonsillectomy Family History Family History Mother Patient's mother is in good health Father Patient's father is in good health Social History Social History Smoking status: Former smoker Tobacco type: cigarettes Smoking end date: 11/11/17 Alcohol intake: current Alcohol use details: rarely Substance use: current Substance use type: marijuana Last use: 06/26/22 Living arrangements: with family Occupation/Education: occupation Gender identity (if verbalized by the patient): Female Spiritual care concerns: No Comments At time of signature, agree with nursing past medical, surgical, social and family history. There is no relevant family history pertinent to the presenting complaint Exam Narrative: GENERAL: Nontoxic-appearing, well-nourished, and in no acute distress. HEAD: Normocephalic EYES: PERRLA, conjunctivae clear ENT: Nares clear, turbinates edematous and erythematous, clear discharge. Mucous membranes moist. TM pearly reaves with dull light reflex bilaterally; no tragal tenderness. Oropharynx not erythematous without lesions. Tonsils not enlarged and without exudate, no drooling, no hoarseness, no trismus, uvula midline. NECK: Supple. No lymphadenopathy CHEST: Clear to auscultation, breath sounds equal. No wheezing, rhonchi, rales, or stridor. No respiratory distress, speaks in full sentences. HEART: Regular rate and rhythm. No murmur heard. SKIN: Warm, dry, no rash. NEURO: Alert and oriented x3. PSYCH: Normal mood and affect Course Course Emergency Course: Patient is aware of diagnosis, understands and agrees to treatment plan. Anticipatory guidance given. Patient agrees to follow-up as directed and is aware of reasons to seek care at the emergency department. Portions of this record may have been created with voice recognition software Level of Care: Express Care Visit Vital Signs V
== END 2023-10-26 17:50 | disposition home or self-care (01) ==
PROVIDERS: Emergency Provider Nurse Practitioner; PCP Nurse Practitioner Family
DX: J40 Bronchitis, not specified as acute or chronic (principal); Z20.822 Contact with and (suspected) exposure to COVID-19; Z87.891 Personal history of nicotine dependence
CPT/HCPCS: 87426; 87804; 99213; C9803; G0463